=== PATIENT | female | born 1965 | race Caucasian/White ===

== ENCOUNTER → 2018-07-07 | Outpatient (CLI) | payer OTHER ==
[~2018-07-07] MED LIST: ASPECOTC PO; CONJ0.3T3 PO; IBUP-103 PO
--- NOTE | 2018-07-07 11:11 | DIAGNOSTIC IMAGING REPORT ---
ULTRASOUND RIGHT UPPER QUADRANT ABDOMEN CLINICAL HISTORY: Right upper quadrant abdominal pain. COMPARISON STUDY: Abdominal ultrasound dated 06/04/2014. TECHNIQUE: Real-time, grayscale, and color flow sonography of the right upper quadrant of the abdomen was performed. Images are reviewed in the transverse and longitudinal planes. FINDINGS: Liver: The liver is normal in size and echotexture. There is no intrahepatic biliary ductal dilatation. The main portal vein is patent. Gallbladder: The gallbladder is filled with large shadowing gallstones. There is no gallbladder wall thickening or pericholecystic fluid. A sonographic Amaya's sign is reportedly absent. The common bile duct measures up to 0.4 cm in diameter. Pancreas: Visualized portions of the pancreatic head and body are normal in appearance. Right kidney: Survey images of the right kidney demonstrate normal size and echotexture. There is no hydronephrosis. Ascites: None. IMPRESSION: Cholelithiasis without sonographic evidence of acute cholecystitis. Electronically signed by: Darryl Bean M.D. 07/07/2018 11:10 AM Dictated Date/Time: 07/07/2018 11:09 AM
== END | disposition home or self-care (01) ==
LOC: C.ULTR 10:18
PROVIDERS: ATTEND Family Medicine
DX: R10.9 Unspecified abdominal pain (principal); K80.20 Calculus of gallbladder without cholecystitis without obstruction

== ENCOUNTER 2022-11-10 12:39 | Observation (INO) ==
[2022-11-10] MEDS ORDERED: SODIUM CHLORIDE 0.9% 500 ML IV STA (13:22)
[2022-11-10] MEDS ORDERED: dilTIAZem HCl 5 MG/ML 5 ML VIAL IV STA ×2 (13:23→14:37)
--- NOTE | 2022-11-10 13:32 | Emergency Department Note ---
Impression & Plan Atrial fibrillation with rapid ventricular response, Dizziness, Heart palpitations ED Provider Note NAME: OSCAR PIZARRO AGE: 57 SEX: F : 1965 ARRIVES VIA: Ambulance INFORMANT: Patient, ED PROVIDER(S): Ayaz Raygoza DO CHIEF COMPLAINT: Palpitations HPI: The patient is a 57-year-old female who has a history of paroxysmal atrial fibrillation who presented to the emergency department via ambulance. The patient had an episode of palpitations that she knew was consistent with her previous history of palpitations. She has a history of SVT as well as paroxysmal atrial fibrillation. Currently she does not take medications for either these conditions. She was prescribed medications in the past but prefers not to take them. She does understand that she should be on a blood thinner but also refuses to take this. She understands that this rhythm does put her at higher risk for stroke. She states that while she was shopping today she began to become very lightheaded and felt that she was having palpitations. She had to sit down. She called 911. The patient arrived via ambulance. The patient denies having any recent chest pain or difficulty breathing. At rest right now she states she feels much better. She can feel that her heart is racing however. She denies having any lower extremity swelling or pain. ROS: See above HPI for pertinent positives & negatives. A total of 10 systems reviewed and were otherwise negative. PAST MEDICAL HISTORY: See Below PAST SURGICAL HISTORY: See Below FAMILY HISTORY: See Below SOCIAL HISTORY: See Below HOME MEDICATIONS: See Below ALLERGIES: See Below VITALS: See Below PHYSICAL EXAMINATION: GENERAL: Patient is awake alert in no acute distress patient is resting comfortably and showing no signs of anxiety EYES: The conjunctivae are clear. The pupils are round and reactive. EARS, NOSE, MOUTH AND THROAT: The nose is without any evidence of any deformity. Mucous membranes are moist. Tongue is midline. NECK: The neck is nontender and supple. RESPIRATORY: Normal respiratory effort is noted there is no evidence of wheezing rhonchi or rales CARDIOVASCULAR: Tachycardic and irregular heart sounds were noted auscultation. There is no definite murmur. GASTROINTESTINAL: The abdomen is soft. Abdomen is nontender. MUSCULOSKELETAL/EXTREMITIES: There is no evidence of gross deformity full range of motion is noted in the hips and shoulders. SKIN: There is no obvious evidence of any rash. There are no petechiae, pallor or cyanosis noted. NEUROLOGIC: Patient is awake alert and oriented x3 MEDICAL DECISION MAKING: The patient is a 57-year-old female who presented to the emergency department for an evaluation of dizziness. The patient states she has a history of paroxysmal atrial fibrillation. She has gone into atrial fibrillation before but mostly is in sinus rhythm. She does not take any rate control medication or anticoagulation. She presented to the emergency department as when she was shopping she went into rapid atrial fibrillation became very dizzy. She was treated with Cardizem in the emergency department. She was also treated with IV fluids. Her rate was better controlled however her blood pressure did drop. She continued to be in atrial fibrillation. She does not take medications as an outpatient at this time despite having them prescribed in the past. For this reason I [facility] have agreed to evaluate the patient in the emergency department. Triage Nursing notes reviewed. Prior medical records reviewed Vital Signs: reviewed and remarkable for tachycardia. Differential diagnosis: Premature contractions, electrolyte abnormality, cardiac dysrhythmia, thyroid dysfunction, pulmonary embolism, infection, gastrointestinal, as well as other pathologies. ER treatment provided: See below Diagnostics interpreted by me: ECG: EKG was obtained in the emergency department. My interpretation is atrial fibrillation with RVR at [address] segment abnormalities noted. There were no PVCs appreciated. This was compared to a tracing from November 20, 2015. Sinus rhythm has been replaced with atrial fibrillation. Cardiac Monitoring: An order was placed for continuous cardiac monitoring. The monitor shows a rate of 114 bpm with sinus tachycardia. Laboratory studies: As stated above and show below. Imaging studies: See below Consultation(s): I discussed this case with Dr. Leggett who [facility] ED COURSE: Procedures: none Critical Care: I have personally spent greater than 35 minutes of critical care time in the direct management of this patient. This includes bedside care, interpretation of diagnostic studies, and testing, discussion with consultants, patient, and family members, and other required patient management activities. This 35 minutes is in excess of all separately billable procedures. 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 Beliefs That Will Affect Care: None Current Living Situation: Alone Feels Safe at Home: Yes Assistive Devices: Glasses Allergies Allergies Allergy/AdvReac Type Severity Reaction Status Date / Time pollen extracts Allergy Mild Unknown Verified 11/10/22 16:49 turpentine oil Allergy Mild Headache Verified 11/10/22 16:49 walnut Allergy Mild Rash Verified 11/10/22 16:49 codeine AdvReac Unknown "MAKES ME Verified 11/10/22 16:49 CRAZY" erythromycin base AdvReac Unknown NAUSEA Verified 11/10/22 16:49 flu shot Allergy swelling @ Uncoded 11/10/22 16:50 site Home Meds Home Medications Medication Instructions Recorded Confirmed conj estrogen-medroxyprogesterone 1 tab PO DAILY 09/01/18 11/10/22 0.45 mg-1.5 mg tablet (Prempro) naproxen 250 mg tablet 250 mg PO BID PRN Pain 09/01/18 11/10/22 Results & Data (ED) Vital Signs Vital Signs - 24 hr 11/10/22 12:48 11/10/22 13:43 11/10/22 14:38 Pulse Rate 144 H Pulse Rate [Apical] 107 H 127 H Pulse Rhythm Regular Pulse Rhythm [Apical] Regular Respiratory Rate 18 18 18 Respiratory Effort / Characteristics Non-Labored Spontaneous Non-Labored Spontaneous Respiratory Depth Normal Normal Respiratory Pattern Regular Regular Blood Pressure 165/127 H Blood Pressure [Left Arm] 124/93 107/83 Blood Pressure Mean 139 Blood Pressure Mean [Left Arm] 103 91 Blood Pressure Position Lying Blood Pressure Position [Left Arm] Lying Lying Pulse Oximetry 99 94 98 Oxygen Delivery Method Room Air Room Air Room Air Sepsis Recent Fever Within 48 Hours No Sepsis New/Unexplained Change in Mental Status No Sepsis Action Taken by Nursing No Action Required 11/10/22 15:16 11/10/22 16:30 Pulse Rate Pulse Rate [Apical] 92 H 114 H Pulse Rhythm Pulse Rhythm [Apical] Respiratory Rate 16 18 Respiratory Effort / Characteristics Respiratory Depth Respiratory Pattern Blood Pressure Blood Pressure [Left Arm] 86/63 L 113/78 Blood Pressure Mean Blood Pressure Mean [Left Arm] 70 89 Blood Pressure Position Blood Pressure Position [Left Arm] Lying Pulse Oximetry 93 93 Oxygen Delivery Method Room Air Room Air Sepsis Recent Fever Within 48 Hours Sepsis New/Unexplained Change in Mental Status Sepsis Action Taken by Snf Medications Current Medication List: was personally reviewed by me Laboratory Data Attestation: I reviewed the patient's lab results. Result diagrams: 11/10/22 12:55 11/10/22 12:55 Lab Results 11/10/22 11/10/22 11/10/22 Range/Units 12:55 12:55 12:55 WBC 7.47 (4.8-10.8) K/ul RBC 4.84 (3.93-5.22) M/uL Hgb 14.6 (12.0-16.0) g/dl Hct 42.9 (34.1-44.9) % MCV 88.6 (80.0-100.0) fL MCH 30.2 (25.0-34.0) pg MCHC 34.0 (32.0-36.0) g/dL RDW Std Deviation 43.9 (36.4-46.3) fL RDW Coeff of Trace 13.4 (11.5-14.5) % Plt Count 375 (130-400) K/uL MPV 9.9 (9.4-12.3) fL Immature Gran % (Auto) 0.4 % Neut % (Auto) 52.2 % Lymph % (Auto) 37.8 % [place] % (Auto) 8.6 % Eos % (Auto) 0.9 % Baso % (Auto) 0.1 % Neut # (Auto) 3.90 (1.4-6.5) K/uL Lymph # (Auto) 2.82 (1.2-3.4) K/uL [place] # (Auto) 0.64 (0.24-0.82) K/uL Eos # (Auto) 0.07 (0-0.50) K/uL Baso # (Auto) 0.01 (0-0.2) K/uL Immature Gran # (Auto) 0.03 H (0.00-0.02) K/uL PT 10.3 (9.0-12.0) Seconds INR 1.0 (0.9-1.1) APTT 27.4 (21.0-31.0) Seconds PTT Ratio 1.0 Sodium 140 (136-145) mmol/L Potassium 3.5 (3.5-5.1) mmol/L Chloride 105 (98-107) mmol/L Carbon Dioxide 26 (21-32) mmol/L Anion Gap 9 (3-11) BUN 17 (6-23) mg/dl Creatinine 0.72 (0.6-1.2) mg/dl Est Cr Clr Drug Dosing 60.9 ml/min Est GFR ( Amer) 107.0 ml/min Est GFR (Non-Af Amer) 92.3 ml/min BUN/Creatinine Ratio 23.6 H (10-20) Glucose 92 (70-99(Fasting)) mg/dl Calcium 9.2 (8.5-10.1) mg/dl Magnesium 1.9 (1.7-2.4) mg/dl Total Bilirubin 0.4 (0.2-1.0) mg/dl AST 19 (13-39) U/L ALT 16 (7-52) U/L Alkaline Phosphatase 84 (34-104) U/L Troponin I High Sens 3.2 (0-14) pg/ml Total Protein 7.8 (6.0-8.3) gm/dl Albumin 4.6 (3.4-5.0) gm/dl Globulin 3.2 (2.5-4.0) gm/dl Albumin/Globulin Ratio 1.4 (0.9-2) TSH (0.300-4.500) uIu/ml SARS-CoV-2, RNA, NAAT (NEGATIVE) 11/10/22 11/10/22 Range/Units 12:55 16:08 WBC (4.8-10.8) K/ul RBC (3.93-5.22) M/uL Hgb (12.0-16.0) g/dl Hct (34.1-44.9) % MCV (80.0-100.0) fL MCH (25.0-34.0) pg MCHC (32.0-36.0) g/dL RDW Std Deviation (36.4-46.3) fL RDW Coeff of Trace (11.5-14.5) % Plt Count (130-400) K/uL MPV (9.4-12.3) fL Immature Gran % (Auto) % Neut % (Auto) % Lymph % (Auto) % [place] % (Auto) % Eos % (Auto) % Baso % (Auto) % Neut # (Auto) (1.4-6.5) K/uL Lymph # (Auto) (1.2-3.4) K/uL [place] # (Auto) (0.24-0.82) K/uL Eos # (Auto) (0-0.50) K/uL Baso # (Auto) (0-0.2) K/uL Immature Gran # (Auto) (0.00-0.02) K/uL PT (9.0-12.0) Seconds INR (0.9-1.1) APTT (21.0-31.0) Seconds PTT Ratio Sodium (136-145) mmol/L Potassium (3.5-5.1) mmol/L Chloride (98-107) mmol/L Carbon Dioxide (21-32) mmol/L Anion Gap (3-11) BUN (6-23) mg/dl Creatinine (0.6-1.2) mg/dl Est Cr Clr Drug Dosing ml/min Est GFR ( Amer) ml/min Est GFR (Non-Af Amer) ml/min BUN/Creatinine Ratio (10-20) Glucose (70-99(Fasting)) mg/dl Calcium (8.5-10.1) mg/dl Magnesium (1.7-2.4) mg/dl Total Bilirubin (0.2-1.0) mg/dl AST (13-39) U/L ALT (7-52) U/L Alkaline Phosphatase (34-104) U/L Troponin I High Sens (0-14) pg/ml Total Protein (6.0-8.3) gm/dl Albumin (3.4-5.0) gm/dl Globulin (2.5-4.0) gm/dl Albumin/Globulin Ratio (0.9-2) TSH 1.369 (0.300-4.500) uIu/ml SARS-CoV-2, RNA, NAAT NEGATIVE (NEGATIVE) Administered Medications Discontinued Medications Diltiazem HCl (Diltiazem Hcl 5 Mg/Ml 5 Ml Vial) 10 mg IV NOW STA Stop: 11/10/22 13:24 Last Admin: 11/10/22 13:40 Dose: 10 mg Documented By: YFN Co-signed By: AM Diltiazem HCl (Diltiazem Hcl 5 Mg/Ml 5 Ml Vial) 10 mg IV NOW STA Stop: 11/10/22 14:38 Last Admin: 11/10/22 14:42 Dose: 10 mg Documented By: MALGORZATA Co-signed By: PRESTON Sodium Chloride (Nss) 500 mls @ 999 mls/hr IV .Q31M STA Stop: 11/10/22 13:52 Last Infusion: 11/10/22 14:15 Dose: 0 mls/hr Documented By: Admin: 11/10/22 13:40 Dose: 999 mls/hr Documented By: YFN Sodium Chloride (Nss 1000ml) 500 mls @ 999 mls/hr IV .Q31M ONE Stop: 11/10/22 15:07 Last Infusion: 11/10/22 15:16 Dose: 0 mls/hr Documented By: Admin: 11/10/22 14:42 Dose: 999 mls/hr Documented By: MALGORZATA Imaging Data Radiologist's Impression: Chest X-Ray 11/10/22 13:22 XR chest 1V portable CLINICAL HISTORY: Dysrhythmia TECHNIQUE: Single frontal radiograph of the chest was obtained. Comparison: Comparison is made to chest radiograph 06/12/2021 FINDINGS: No lines and tubes are seen. The cardiomediastinal silhouette is normal. The lungs are clear. No evidence of pleural effusion or pneumothorax. IMPRESSION: No acute chest disease. ACT 112: Negative or not required by law. Electronically signed by: Lazaro Chew M.D. 11/10/2022 1:47 PM Discharge Plan Visit Data Chief Complaint: Cardiac Assessment Stated Complaint: CARDIAC ASSESSMENT ED Provider: Ayaz Raygoza Discharge Problem: Atrial fibrillation with rapid ventricular response, Dizziness, Heart palpitations Patient Disposition: Being Evaluated by Hospitalist Forms Stand Alone Forms: [facility] [email or web address] Prescriptions Prescriptions: No Action naproxen 250 mg Tablet 250 mg PO BID PRN (Reason: Pain) Prempro 0.45-1.5 mg Tablet 1 tab PO DAILY Referrals Referrals: Helen Up DO [Primary Care Provider] -
[2022-11-10 13:34] LABS: Basophils # (auto) 0.01 K/uL (0-0.2); Basophils % (auto) 0.1 %; Eosinophils # (auto) 0.07 K/uL (0-0.50); Eosinophils % (auto) 0.9 %; Hematocrit (blood only) 42.9 % (34.1-44.9); Hemoglobin 14.6 g/dl (12.0-16.0); Immature Granulocytes # (auto) 0.03 K/uL (0.00-0.02); Immature Granulocytes % (auto) 0.4 %; Lymphocytes # (auto) 2.82 K/uL (1.2-3.4); Lymphocytes % (auto) 37.8 %; Mean Corpuscular Hemoglobin 30.2 pg (25.0-34.0); Mean Corpuscular Volume 88.6 fL (80.0-100.0); Mean Platelet Volume 9.9 fL (9.4-12.3); Monocytes # (auto) 0.64 K/uL (0.24-0.82); Monocytes % (auto) 8.6 %; Neutrophils % (auto) 52.2 %; Platelet Count 375 K/uL (130-400); RDW Coefficient of Variation 13.4 % (11.5-14.5); RDW Standard Deviation 43.9 fL (36.4-46.3); Red Blood Count 4.84 M/uL (3.93-5.22); White Blood Count 7.47 K/ul (4.8-10.8)
[2022-11-10 13:41] LABS: Partial Thromboplastin Time 27.4 Seconds (21.0-31.0); Prothrombin Time 10.3 Seconds (9.0-12.0)
[2022-11-10 13:49] LABS: Albumin Globulin Ratio 1.4 (0.9-2); Albumin Level 4.6 gm/dl (3.4-5.0); BUN Creatinine Ratio 23.6 (10-20); Bilirubin,Total 0.4 mg/dl (0.2-1.0); Calcium 9.2 mg/dl (8.5-10.1); Creatinine Clr Calc Pharmacy 60.9 ml/min; Est GFR (Non-African American) 92.3 ml/min; Globulin 3.2 gm/dl (2.5-4.0); Magnesium 1.9 mg/dl (1.7-2.4); Potassium 3.5 mmol/L (3.5-5.1); Total Protein 7.8 gm/dl (6.0-8.3)
--- NOTE | 2022-11-10 13:50 | XRay Report ---
XR chest 1V portable CLINICAL HISTORY: Dysrhythmia TECHNIQUE: Single frontal radiograph of the chest was obtained. Comparison: Comparison is made to chest radiograph 06/12/2021 FINDINGS: No lines and tubes are seen. The cardiomediastinal silhouette is normal. The lungs are clear. No evid ence of pleural effusion or pneumothorax. IMPRESSION: No acute chest disease. ACT 112: Negative or not required by law. Electronically signed by: Lazaro Chew M.D. 11/10/2022 1:47 PM
[2022-11-10 13:51] LABS: Troponin I High Sensitivity 3.2 pg/ml (0-14)
[2022-11-10] MEDS ORDERED: SODIUM CHLORIDE 0.9% 1000ML 500 ML IV ONE (14:37)
--- NOTE | 2022-11-10 16:16 | History & Physical Report ---
Date of Service November 10, 2022 Assessment & Plan (1) Atrial fibrillation with RVR: Plan: -Admit to PCU on tele/pulse oximetry -Patient has a history of SVT with a previous history of afib -Found to be in afib RVR in the ED, S/P 20 mg IV diltiazem -Patient was initially hypotensive after receiving the diltiazem but this resolved after 1.5 L NSS -Unfortunately she is not responding to the Diltiazem, will switch her to 12.5 mg PO BID with PRN IV metoprolol for sustained HR > 130 -Discussed with the patient and she is ok with trying the metoprolol again as she did not respond to the Diltiazem -Initial mag was at 1.7, will give 1gm IV mag now -For now will start the patient on therapeutic lovenox for stroke prevention -Will obtain new TTE and consult cardiology for assistance -AM CBC and CMP Plan The patient was discussed with Dr. Leggett at the time of the admission History of Present Illness Chief Complaint: Chest pain Primary Care Provider: DO Jany Tolliver is a 57 year old female with a PMH significant for afib not on anticoagu lation who presented to the [facility] ED on 11/10/22 with a chief complaint of heart palpitations. In the ED the patient was found to be afebrile, hemodynamically stable, stable, on RA, but tachycardic with HR in the 140's. ECG shows afib RVR. Labs were remarkable for a CBC WNL, INR WNL, stable renal function and electrolytes, TSH WNL, initial high sensitivity troponin of 3.2, and covid negative. Chest xray was read as "no acute chest disease". The patient was initially given a 500 mL NSS bolus and 2 doses of 20 mg IV diltiazem. Her HR remained in the low 100's and the patient had transient hypotension with systolic BP in the mid 80's. The patient was given an additional 1L NSS bolus and her BP improved to 113/78. At the time of the exam the patient was resting in bed in no acute distress. She states that she had been in her normal state of health and had been out shopping earlier today. She was standing in the checkout line when she suddenly experienced heart palpitations, right arm pain, jaw pain, and started developing darkening vision in both eyes. She states that she felt as though she was going to pass out so she called out for help and slowly lowered herself to the ground. She denies losing consciousness, hitting her head, and trauma of any kind. She does have some nausea and a headache at the time of my exam. She denies recent fevers, chills, chest pain, SOB, abdominal pain, nausea, vomiting, diarrhea, dysuria, and recent falls. Of note, she notes increased urinary frequency over the past 24 hours but denies dysuria and hematuria. The patient follows with Dr. Degroot who previously saw her for episodes of SVT and one previous episode of afib RVR. He had placed the patient on low dose metoprolol previously and aspirin. The patient states that she stopped taking the metoprolol as she would become very fatigued and experienced multiple episodes of hypotension with some orthostatic hypotension. 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 Please refer to Dr. Leggett's attestation for any changes to the treatment plan. Allergies Allergy/AdvReac Type Severity Reaction Status Date / Time pollen extracts Allergy Mild Unknown Verified 11/10/22 16:49 turpentine oil Allergy Mild Headache Verified 11/10/22 16:49 walnut Allergy Mild Rash Verified 11/10/22 16:49 codeine AdvReac Unknown "MAKES ME Verified 11/10/22 16:49 CRAZY" erythromycin base AdvReac Unknown NAUSEA Verified 11/10/22 16:49 flu shot Allergy swelling @ Uncoded 11/10/22 16:50 site Home Medications Medication Instructions Recorded Confirmed Type conj estrogen-medroxyprogesterone 1 tab PO DAILY 09/01/18 09/04/18 History 0.45 mg-1.5 mg tablet (Prempro) naproxen 250 mg tablet 250 mg PO BID PRN Pain 09/01/18 09/04/18 History Past Med/Surg History Medical History (Updated 11/10/22 @ 17:03 by Anthony Reyes PA-C) 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 reaction to anesthesia or dye Social History Smoking Status: Former smoker Tobacco Type: Cigarettes Second Hand Exposure: Yes (parents smoked); Hx Alcohol Use: Yes Alcohol type: beer and wine Hx Substance Use: No Preferred Language: Qatari Communication Ability: Effective Clipman Required: No Beliefs That Will Affect Care: None Current Living Situation: Alone Feels Safe at Home: Yes Assistive Devices: Glasses Review of Systems Review of Systems: Denies current fever, chills, changes in vision, hearing, taste, and smell, chest pain, SOB, cough, abdominal pain, diarrhea, hematemesis, melena, dysuria, hematuria, and recent falls. All systems have been reviewed and are otherwise negative. Physical Exam Physical Exam: Physical Exam: General: In no acute distress, stated age, well-nourished, good hygiene, non- toxic appearing HEENT: Normocephalic, atraumatic, no scleral icterus, pupils around round, symmetrical, and reactive to light, moist mucus membranes, trachea midline, no thyromegaly Chest/Pulm: No respiratory distress, symmetrical chest expansion, clear breath sounds throughout Cardiac: irregular rate and rhythm, no murmurs noted Abdomen: Negative for ascites and bruising, normoactive bowel sounds, soft, non-tender to palpation throughout Musculoskeletal: Symmetrical and without signs of acute trauma, upper and lower extremities with full ROM, no atrophy, spasticity, or flaccidity Extremities: Radial, dorsalis pedis, and posterior tibial pulses are intact and symmetrical, no edema noted in the BL LE's Skin: Warm, dry, no rashes , lesions, or scars noted Neuro: Alert and oriented to person, place, month, year, and president, no focal defects, CN II-XII tested and intact, finger to nose test negative, no tremors noted Psych: No acute distress, calm and cooperative during the exam Results & Data Results & Data ([facility]) Vital Signs (Past 12 Hours) Vital Signs Pulse Pulse Resp BP BP Pulse Ox O2 Del Method 11/10/22 15:16 92 H 16 86/63 L 93 Room Air 11/10/22 14:38 127 H 18 107/83 98 Room Air 11/10/22 13:43 107 H 18 124/93 94 Room Air 11/10/22 12:48 144 H 18 165/127 H 99 Room Air Laboratory Results Abnormal lab results 11/10/22 11/10/22 Range/Units 12:55 12:55 Immature Gran # (Auto) 0.03 H (0.00-0.02) K/uL BUN/Creatinine Ratio 23.6 H (10-20) Diagnostic Findings Chest X-Ray 11/10/22 13:22 XR chest 1V portable CLINICAL HISTORY: Dysrhythmia TECHNIQUE: Single frontal radiograph of the chest was obtained. Comparison: Comparison is made to chest radiograph 06/12/2021 FINDINGS: No lines and tubes are seen. The cardiomediastinal silhouette is normal. The lungs are clear. No evidence of pleural effusion or pneumothorax. IMPRESSION: No acute chest disease. ACT 112: Negative or not required by law. Electronically signed by: Lazaro Chew M.D. 11/10/2022 1:47 PM ECG Additional Comments: Atrial fibrillation with rapid ventricular response Septal infarct , age undetermined Abnormal ECG When compared with ECG of 20-NOV-2015 09:47, Atrial fibrillation has replaced Sinus rhythm Nonspecific T wave abnormality now evident in Inferior leads Nonspecific T wave abnormality now evident in Anterior leads Code Status & VTE Plan Code Status Full code VTE Prophylaxis Plan VTE Prophylaxis will be ordered: Yes Supervising Physician Co-Signing Physician Notes Patient was seen and examined independently I discussed the case with Anthony DENISE I reviewed pertinent past medical social family history and also the plan of care and agree with the plan of care. Patient still with persistent atrial fibrillation rapid ventricular response. She is a history of the same. In the past she had not been placed on chronic anticoagulation as her chads BASC score was low. At this time she had 2 doses of 10 mg of diltiazem in the ER with resultant low blood pressure however her blood pressure since responded and her heart rate continues to be rapid. She does have some right arm and jaw discomfort which is typical for her when her SVT acts up nothing is been out of the ordinary. She has been sleep d eprived over the last few days due to her noisy tenet she has not had excess caffeine she takes no other etpt-swz-gufomfs supplements or medications. In the emergency department she is tachycardic and irregular she is not in heart failure her lungs are clear she has no peripheral edema I hear no rubs or gallops Will admit the patient to telemetry we will give her a gram of magnesium will reinstitute beta-blockers which she had used in the past. She is not in favor of them as they did cause some orthostasis in the past but does not seem she is responded very well to hold diltiazem at this point time. Cardiology consult and echocardiogram will be ordered thank you Any exceptions will be noted below PG Care Time/CCT Total # of Minutes Spent Total Time Spent with Patient: Total time spent is greater than 50% in coordination of care (as documented) at patient's floor/unit and/or counseling patient: [place] [address] Initial Inpt Care Lvl 3 Patient Type Established History Comprehensive Exam Comprehensive Medical Decision Making High Complexity Diagnoses Atrial fibrillation with RVR I48.91
[2022-11-10] MEDS ORDERED: METOPROLOL TARTRATE 1 MG/ML VIAL IV PRN (16:40)
[2022-11-10] MEDS ORDERED: dilTIAZem HCL 30 MG TAB PO SCH (16:40)
[2022-11-10] MEDS ORDERED: LACTATED RINGER'S 1,000 ML IV SCH (16:45)
[2022-11-10] MEDS ORDERED: MAGNESIUM SULFATE / D5W 1 GM/100 ML BAG IV ONE (16:47)
[2022-11-10] MEDS ORDERED: ACETAMINOPHEN 325 MG TAB PO PRN (16:50)
[2022-11-10] MEDS ORDERED: ONDANSETRON INJ 2 MG/ML 2 ML VIAL IV PRN (16:51)
[2022-11-10] MEDS: METOPROLOL SUCC 25MG EXT REL TAB PO SCH (20:42)
[2022-11-10] MEDS: ENOXAPARIN INJ 60 MG/0.6 ML SYR SQ SCH (22:44)
[2022-11-11 06:37] LABS: Hematocrit (blood only) 41.1 % (34.1-44.9); Hemoglobin 14.2 g/dl (12.0-16.0); Mean Corpuscular Hemoglobin 29.9 pg (25.0-34.0); Mean Corpuscular Hgb Conc 34.5 g/dL (32.0-36.0); Mean Corpuscular Volume 86.5 fL (80.0-100.0); Mean Platelet Volume 9.6 fL (9.4-12.3); Platelet Count 343 K/uL (130-400); RDW Coefficient of Variation 13.4 % (11.5-14.5); RDW Standard Deviation 42.6 fL (36.4-46.3); Red Blood Count 4.75 M/uL (3.93-5.22); White Blood Count 5.62 K/ul (4.8-10.8)
[2022-11-11 07:02] LABS: Albumin Globulin Ratio 1.3 (0.9-2); Albumin Level 3.6 gm/dl (3.4-5.0); BUN Creatinine Ratio 21.2 (10-20); Bilirubin,Total 0.4 mg/dl (0.2-1.0); Calcium 8.4 mg/dl (8.5-10.1); Creatinine Clr Calc Pharmacy 68.8 ml/min; Est GFR (African American) 112.9 ml/min; Est GFR (Non-African American) 97.4 ml/min; Globulin 2.7 gm/dl (2.5-4.0); Total Protein 6.3 gm/dl (6.0-8.3)
--- NOTE | 2022-11-11 10:21 | Electrocardiogram Report ---
Test Reason : Blood Pressure : / mmHG Vent. Rate : 131 BPM Atrial Rate : 127 BPM P-R Int : 000 ms QRS Dur : 080 ms QT Int : 306 ms P-R-T Axes : 000 050 025 degrees QTc Int : 451 ms Atrial fibrillation with rapid ventricular response Nonspecific ST and T wave abnormality Abnormal ECG When compared with ECG of 20-NOV-2015 09:47, Atrial fibrillation has replaced Sinus rhythm Nonspecific T wave abnormality now evident in Inferior leads Nonspecific T wave abnormality now evident in Anterior leads Confirmed by Troy Degroot ([id number]) on 11/11/2022 10:20:46 AM Referred By: REFERRED SELF Confirmed By:Troy Degroot
[2022-11-11] MEDS ORDERED: FLECAINIDE ACETATE 100 MG TABLET PO SCH (12:25)
[2022-11-11] MEDS: METOPROLOL SUCC 25MG EXT REL TAB PO SCH (12:27)
[2022-11-11] MEDS: ENOXAPARIN INJ 60 MG/0.6 ML SYR SQ SCH (12:27)
[2022-11-11] MEDS ORDERED: APIXABAN 5 MG TABLET PO SCH (12:30)
[2022-11-11] MEDS ORDERED: dilTIAZem HCL 30 MG TAB PO SCH (12:30)
--- NOTE | 2022-11-11 12:30 | Cardiology Consultation ---
Date of Consultation November 11, 2022 History of Present Illness Reason for Consultation: Atrial fibrillation with a rapid ventricular response Attending Physician: Flakito Nguyen DO History of Present Illness This a very pleasant 57-year-old female who has been under a lot of stress preparing for the holidays. She is also had multiple nights of sleep deprivation and trying to get all of her work done. She was out shopping yesterday and all of a sudden felt her heart racing she had tunnel vision and everything turned black and she had a slide herself down to the ground. She did not lose consciousness nor did she hit her head. In retrospect she does wonder if over the last number of days she has been having some episodes whether SVT or even A. fib lasting up to about 10 or 15 minutes. She denies any falls or syncopal episode she has any chest pain or chest pressure. She has any shortness of breath PND orthopnea. She has any presyncope or syncope. Her functional capacity prior to this was normal. This morning she converted back to sinus rhythm on her own without a pause. She really does not tolerate beta-blockers as they make her feel quite poor. She has a lower extreme edema or symptoms of claudication she denies any other potential triggers that may have caused her atrial fibrillation. There ischemia system otherwise negative Allergies Allergy/AdvReac Type Severity Reaction Status Date / Time pollen extracts Allergy Mild Unknown Verified 11/10/22 16:49 turpentine oil Allergy Mild Headache Verified 11/10/22 16:49 walnut Allergy Mild Rash Verified 11/10/22 16:49 codeine AdvReac Unknown "MAKES ME Verified 11/10/22 16:49 CRAZY" erythromycin base AdvReac Unknown NAUSEA Verified 11/10/22 16:49 flu shot Allergy swelling @ Uncoded 11/10/22 16:50 site Home Medications Medication Instructions Recorded Confirmed Type conj estrogen-medroxyprogesterone 1 tab PO DAILY 09/01/18 11/10/22 History 0.45 mg-1.5 mg tablet (Prempro) naproxen 250 mg tablet 250 mg PO BID PRN Pain 09/01/18 11/10/22 History Patient History Medical History (Updated 11/10/22 @ 17:15 by Ayaz Raygoza DO) Atrial fibrillation intermittently-no meds; no patient transporter Fibromyalgia GERD (gastroesophageal reflux disease) Gout Hyperlipidemia no meds Osteoarthritis Surgical History History of dilatation and curettage History of tooth extraction wisdom teeth Family History Father Family history of reaction to anesthesia "swelled up after heart stent surgery"--? reaction to anesthesia or dye Social History Smoking Status: Former smoker Tobacco Type: Cigarettes Second Hand Exposure: Yes (parents smoked); Hx Alcohol Use: Yes Alcohol type: beer and wine Hx Substance Use: No Preferred Language: Maltese Communication Ability: Effective Radio Despatcher Required: No Beliefs That Will Affect Care: None Current Living Situation: Alone Other Information That Helps Us Care for You: No Feels Safe at Home: Yes Safety Concerns: Feels Safe At This Time Assistive Devices: Glasses Results & Data ([facility]) Vital Signs (Past 12 Hours) Vital Signs Temp Pulse Pulse Resp BP Pulse Ox O2 Del Method 11/11/22 11:45 36.3 C L 129 H 20 103/66 97 Room Air 11/11/22 07:55 138 H 11/11/22 06:37 36.5 C 115 H 20 93/62 L 94 Room Air 11/11/22 05:45 108 H 11/11/22 04:11 36.5 C 98 H 18 95/65 L 96 Room Air she is awake alert and orient x3 she is in no acute distress well-appearing female looks younger than her stated age HEENT to prescribe 6 tones carotid bruits Lungs: Clear to auscultation bilaterally no rales rhonchi wheezing Heart regular rate and rhythm no appreciable murmurs rubs or gallops Abdomen soft and tender nondistended positive bowel sounds Extremities: No clubbing cyanosis or edema Psychiatric: Her affect. Appropriate EKG atrial fibrillation with a rapid ventricular response All her meds were reviewed as well as her blood work IMPRESSIONS: 1. Atrial fibrillation with a rapid ventricular response 2. History of SVT with known echo beats by EP study with easily inducible atrial fibrillation at the time of her EP study 3. History of normal LV function She did convert this morning without a pause. As I discussed over again to consider ablative therapy she likely needs not only AV node modification of the slow pathway but she probably would need an A. fib ablation as well. 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 The challenges when she is in sinus rhythm she is usually in the 50s we will have to make sure she is not excessively slow in sinus rhythm on flecainide. Additionally she will need to be on some AV ronnie blockers she is intolerant of beta-blockers and therefore we will try diltiazem 30 mg twice daily. I did discuss with there is a small chance that with flecainide you can convert atrial fibrillation to organized atrial flutter and hence the need for an AV ronnie marga. She has been in atrial fibrillation about 24 hours before she converted I would give her Eliquis to take 5 mg twice daily x2 weeks. After that she can stop but I did discuss that if she have recurrent A. fib that is lasting upwards of 20 to 24 hours she should start taking Eliquis to buy some time in order to allow her to convert on her own or arrange for outpatient cardioversion. When she gets a dose of her medications this morning she could be discharged from my standpoint. Given the fact that it is [place] we will need to give her 3 or 4 doses of medications to take with her. She is agreeable to this and we will see her in the office in 10 to 14 days with an EKG.
--- NOTE | 2022-11-11 14:27 | Discharge Summary ---
Date of Service November 11, 2022 Admission HPI Per Admitting Provider Jany is a 57 year old female with a PMH significant for afib not on anticoagulation who presented to the [facility] ED on 11/10/22 with a chief complaint of heart palpitations. In the ED the patient was found to be afebrile, hemodynamically stable, stable, on RA, but tachycardic with HR in the 140's. ECG shows afib RVR. Labs were remarkable for a CBC WNL, INR WNL, stable renal function and electrolytes, TSH WNL, initial high sensitivity troponin of 3.2, and covid negative. Chest xray was read as "no acute chest disease". The patient was initially given a 500 mL NSS bolus and 2 doses of 20 mg IV diltiazem. Her HR remained in the low 100's and the patient had transient hypotension with systolic BP in the mid 80's. The patient was given an additional 1L NSS bolus and her BP improved to 113/78. At the time of the exam the patient was resting in bed in no acute distress. She states that she had been in her normal state of health and had been out shopping earlier today. She was standing in the checkout line when she suddenly experienced heart palpitations, right arm pain, jaw pain, and started developing darkening vision in both eyes. She states that she felt as though she was going to pass out so she called out for help and slowly lowered herself to the ground. She denies losing consciousness, hitting her head, and trauma of any kind. She does have some nausea and a headache at the time of my exam. She denies recent fevers, chills, chest pain, SOB, abdominal pain, nausea, vomiting, diarrhea, dysuria, and recent falls. Of note, she notes increased urinary frequency over the past 24 hours but denies dysuria and hematuria. The patient follows with Dr. Degroot who previously saw her for episodes of SVT and one previous episode of afib RVR. He had placed the patient on low dose metoprolol previously and aspirin. The patient states that she stopped taking the metoprolol as she would become very fatigued and experienced multiple episodes of hypotension with some orthostatic hypotension. I spoke to the patient regarding code status, she is a Full Code and her partner, Richard Malik [phone] would make decisions for her if she could not make them herself. Please refer to Dr. Leggett's attestation for any changes to the treatment plan. Admission Exam Per Admitting Provider Physical Exam: General:In no acute distress, stated age, well-nourished, good hygiene, non- toxic appearing HEENT:Normocephalic, atraumatic, no scleral icterus, pupils around round, symmetrical, and reactive to light, moist mucus membranes, trachea midline, no thyromegaly Chest/Pulm:No respiratory distress, symmetrical chest expansion, clear breath sounds throughout Cardiac:irregular rate and rhythm, no murmurs noted Abdomen:Negative for ascites and bruising, normoactive bowel sounds, soft, non-tender to palpation throughout Musculoskeletal:Symmetrical and without signs of acute trauma, upper and lower extremities with full ROM, no atrophy, spasticity, or flaccidity Extremities:Radial, dorsalis pedis, and posterior tibial pulses are intact and symmetrical, no edema noted in the BL LE's Skin:Warm, dry, no rashes , lesions, or scars noted Neuro:Alert and oriented to person, place, month, year, and president, no focal defects, CN II-XII tested and intact, finger to nose test negative, no azam mors noted Psych:No acute distress, calm and cooperative during the exam Principal Diagnosis afib with RVR Discharge Exam Constitutional NAD. Vitals WNL. No longer tachycardic upon d/c. Respiratory CTA bilaterally. No rhonchi, wheezing, or crackles. Non labored breathing. Cardiovascular Irregular rhythm this AM with tachycardia, upon repeat exam regular rhythm and rate. No murmur noted. No LE edema. Gastrointestinal (Abdomen) +BS. Nontender throughout all 4 quadrants. No masses noted. Psychiatric Alert. Mood and affect congruent. Discharge Data Allergies Allergy/AdvReac Type Severity Reaction Status Date / Time pollen extracts Allergy Mild Unknown Verified 11/10/22 16:49 turpentine oil Allergy Mild Headache Verified 11/10/22 16:49 walnut Allergy Mild Rash Verified 11/10/22 16:49 codeine AdvReac Unknown "MAKES ME Verified 11/10/22 16:49 CRAZY" erythromycin base AdvReac Unknown NAUSEA Verified 11/10/22 16:49 flu shot Allergy swelling @ Uncoded 11/10/22 16:50 site Consultations 11/10/22 16:14 ED Decision to Admit Stat 11/10/22 17:12 Consult Cardiology Routine Hospital Course (1) Atrial fibrillation with rapid ventricular response: Pt is a 57 yo female with PMH of afib (w/o anticoagulation or rate control), SVT, and arthritis presenting d/t a near syncopal episode. Afib w/ RVR -Found to be in afib RVR in the ED, s/p 20 mg IV diltiazem -Patient was initially hypotensive after receiving the diltiazem but this resolved after 1.5 L NSS -Unfortunately she did not respond to diltiazem; she was switched metoprolol 12.5 mg PO BID with PRN IV metoprolol for sustained HR > 130 -Initial mag was at 1.7, repleted w/ 1gm IV mag - pt in afib for nearly 24 hours, but spontaneously converted early this afternoon -per cardio, pt to be started on diltiazem 30 mg BID and flecainide 50 mg BID (previously pt did not tolerate metoprolol well) -also per cardio, pt to take eliquis 5 mg BID x14 days and then pill in pocket approach when in episodes of afib for more than 20 hours - recommend continued discussion w/ cardiology and PCP if daily anticoagulation is of benefit, especially because pt states her episodes of afib seem to be more frequent than previously Plan Dispo: home DVT ppx: lovenox in hospital Code: full Total Time Total Time Spent Total Time Spent (In Minutes): <30 Discharge Plan Discharge Items Patient Disposition: Home - Self-Care Reason For Visit: afib rvr Discharge Diagnosis: Afib with RVR Activity: Resume your previous activity Non-emergency contact: Primary Care Provider and Loom Inspector Call non-emergency contact if: you have any medication questions and your symptoms worsen Follow-up/Referrals: Troy Degroot DO [Physician] - (f/u within 10-14 days w/ EKG per Dr. Degroot note Dishcharged on . Follow up appointment will be made 11/13/22 will call patient with date and time.) Helen Up DO [Primary Care Provider] - (Dishcharge follow up appointment will be made 11/13/22 and patient will be called with date and time.) Diet: Regular Addtl Attending Provider Instructions: You were admitted to the hospital for an episode of blackened vision and dizziness. Upon arrival to the hospital, it was found that you were in atrial fibrillation (an abnormal heart rhythm) with rapid ventricular response (fast heart rate). You were initially treated with diltiazem which didn't seem to control your fast heart rate. You were then given metoprolol instead to attempt to control the heart rate. You spontaneously converted from atrial fibrillation to normal sinus rhythm. Medical management of your atrial fibrillation was discussed with your leather stitcher, Dr. Degroot, as explained below. A discharge summary will be sent to your primary care physician to ensure continuity of care. Please bring this discharge summary with you to your next office appointment so that your provider can review it at that time. Medications: Your medication list has been reviewed and reconciled upon discharge to ensure accuracy and continuity of care. An updated list of all your medications is included with your hospital discharge paperwork. Please review this list closely and make note of any changes to your medications. The following medications were added to your home regimen: - flecainide 50 mg twice per day to control heart rhythm - diltiazem 30 mg twice per day to control heart rate - eliquis 5 mg twice per day to prevent blood clots (blood thinner) for the next two weeks. Per Dr. Degroot, you are to begin taking eliquis again when you feel that you are in an episode of atrial fibrillation for more than 20 hours. Follow up appointments: - Make a follow up appointment with your PCP, Dr. Up, within the next week. It is very important that you follow up with them shortly after discharge from the hospital. - You are to follow up with your leather stitcher, Dr. Degroot, within 10-14 days. - Keep all of your follow up appointments as already scheduled. If you cannot make an appointment, notify your provider. CONTACT YOUR PRIMARY CARE PROVIDER if you experience any of the following: - Increasing frequency of atrial fibrillation episodes - Difficulty following your treatment plan - Difficulty taking any of your medications CALL 911 OR GO TO THE EMERGENCY DEPARTMENT if you experience any of the following: - Repeat episode of blackened vision with dizziness that brought you to the hospital - Sudden, severe abdominal pain or nausea/vomiting - Severe chest pain or chest pain that radiates to your jaw or arm - Sudden, severe shortness of breath or difficulty breathing Pending Studies at Discharge: No Stand-Alone Forms: [facility], Smoking Cessation Medications and DC Order Prescriptions: New Eliquis 5 mg Tablet 5 mg PO BID Qty: 30 1RF Rx Instructions: Take 1 tab twice per day for 14 days diltiazem HCl 30 mg Tablet 30 mg PO BID Qty: 60 1RF Rx Instructions: Take 1 tab twice per day flecainide 50 mg tablet 50 mg PO Q12 Qty: 60 1RF Rx Instructions: Take 1 tab twice per day Continued naproxen 250 mg Tablet 250 mg PO BID PRN (Reason: Pain) Prempro 0.45-1.5 mg Tablet 1 tab PO DAILY Discharge Orders: Discharge Order (Routine); Ordered 11/11/22 Ordered By: Vanessa Ramirez Admission Data Admit Date/Time: 11/10/22 16:38 Attending Provider: Flakito Nguyen Admit Provider: Jacques Leggett Primary Care Provider: Helen Up Other Providers: Jacques Leggett ; Troy Degroot Other Interventions: Discharge Summary Assessment (RN) Last Done: 11/11/22 15:06 Supervising Physician Co-Signing Physician Notes I personally examined the patient and verified all morales points of history and exam, discussed case, and agree with decision making with Dr Ramirez feeling good now, converted to NSR, wants to go home. appreciate cardiology input. vitals noted nad heent nc at mmm breathing unlabored no accessory muscles good effort skin no rashes no pallor or icterus. NSR on monitor 72 when i see her afib/RVR - now NSR, rate 70. safe/stable for home, appreciate cardiology input and will follow through with plan as suggested. otherwise as above//as per cardiology input. consider utilizing anticoagulation chronically given her PAF. will defer to outpt team in this regard, however otherwise as above Resident Activity Tracking Resident Involvement: Resident Care Provided Care Provided: Adult Hospital Medicine
--- NOTE | 2022-11-11 15:58 | Billing Data ---
Date of Service November 11, 2022 Coding Level of Care Code D/C DAY MANAGEMENT <30 MINS
== END 2022-11-11 15:52 | disposition home or self-care (01) ==
LOC: ED 12:39 → SUATTDRO 16:38 → 2S 16:38 → INTOOBSV 16:38 → 2S 17:30